=== PATIENT | male | born 1995 | race Caucasian/White ===

== ENCOUNTER 2019-11-21 08:43 | Day surgery (SDC) | payer OTHER ==
[~2019-11-21 08:43] MED LIST: BUPIVACAINE 0.5% PF 30 ML VIAL ONE; LIDOCAINE 1%-EPI 1:100000 20 ML MDV ONE
--- NOTE | 2019-11-21 09:01 | ANESTHESIA ---
Pre-Anesthesia VS, & Labs - Diagnosis Pilonidal cyst - Procedure Pilonidal cystectomy Vital Signs: Last Vital Signs Temp 36.9 C 11/21/19 09:05 Pulse 82 11/21/19 09:05 Resp 18 11/21/19 09:05 BP 160/137 H 11/21/19 09:05 Pulse Ox 97 11/21/19 09:05 - NPO >8 hours Home Medications and Allergies Home Medications: Ambulatory Orders Melatonin 5 - 10 mg PO QPM 11/17/19 Melatonin 5 - 10 mg PO QPM 11/17/19 Allergies/Adverse Reactions: Allergies Allergy/AdvReac Type Severity Reaction Status Date / Time No Known Drug Allergies Allergy Verified 11/17/19 11:53 Anes History & Medical History - Anesthetic History Anesthesia Complications: reports: No previous complications Family history of Anesthesia Complications: Denies Family history of Malignant Hyperthermia: Denies - Medical History Cardiovascular: reports: None Pulmonary: reports: None Gastrointestinal: reports: GERD Urinary: reports: None Musculoskeletal: reports: Chronic back pain Endocrine/Autoimmune: reports: HyPOthyroidism Skin: reports: None - Surgical History Eyes Ears Nose Throat (EENT): Tonsil/Adenoidectomy Exam General: Alert, Cooperative Dental: WNL Mouth Opening: Greater than 4 Fingerbreadths Neck Mobility: Normal Mallampati classification: I Thyromental Distance: greater than 6 cm Respiratory: Lungs clear, Normal breath sounds, No respiratory distress Cardiovascular: Regular rate Neurological: Normal speech Mental/Cognitive Status: Alert/Oriented X3, Normal for patient Cognitive Status: Within normal limits Plan Anesthesia Type: General Consent for Procedure(s) Verified and Reviewed: Yes Code Status: Attempt Resuscitation ASA classification: 2-Mild systemic disease Is this case an emergency?: No
[2019-11-21] MEDS ORDERED: LACTATED RINGERS 1,000 ML IV ONE ×2 (09:09→11:09)
[2019-11-21] MEDS ORDERED: ONDANSETRON 4 MG/2 ML VIAL IVP PRN (10:01)
[2019-11-21] MEDS ORDERED: HYDROmorphone 0.5 MG/0.5 ML SYRINGE IVP PRN (10:01)
[2019-11-21] MEDS ORDERED: oxyCODONE 5 MG TABLET PO PRN (10:01)
[2019-11-21] MEDS ORDERED: LIDOCAINE 1%-EPI 1:100000 30 ML MDV SUBQ ONE (10:18)
[2019-11-21] MEDS ORDERED: BUPIVACAINE 0.5% PF 30 ML VIAL INFIL ONE (10:18)
[2019-11-21] MEDS ORDERED: ceFAZolin 3 GM in SODIUM CHLORIDE 0.9% 100ML 100 ML IV ONE (11:00)
--- NOTE | 2019-11-21 11:04 | OPERATIVE REPORT ---
Operative Report - General Procedure Date: 11/21/19 Pre-Op Diagnosis: Draining Pilonial Sinus Tract Procedure Performed: Excision of pilonidal sinus tract Post Op Diagnosis: same - Procedure Note Primary Surgeon: Colleen Yan MD Anesthesia Provider: Alissa Wang CRNA Anesthesia Technique: General ET tube Pathology: none Estimated Blood Loss (mL): 20 Indications: 24yo M with persistently draining pilonidal sinus tract. No infection but not healing due to hypergranulation tissue. We discussed surgery options and he does not want a formal flap revision due his limited disease and the extensive nature of the procedure so he elects for a 'pit picking' procedure to remove the diseased tissue from the only active tract. All risks, benefits, and alternatives are discussed and pt wishes to proceed. Findings: draining sinus tract with hypergranulation tissue Complications: none - Other Other Information/Narrative: Patient is taken to the OR suite, placed in supine position, and induced to an acceptable level of general anesthesia before being placed prone. The area is prepped and draped in sterile fashion and a timeout performed with the team present. Attention is turned to the lesion. Local anesthesia is infiltrated over the site. The tract has hypergranulation tissue at the 1cm opening. The tract, especially this top area, is curretted to clear all the lining and hypergranulation tissue. The diseased tissue of the opening is excised with the bovie until healthy tissue is encountered. Hemostasis is ensured. The area is cleaned and dried and a clean dressing applied. Wound is packed with half-inch betadine soaked iodoform and dressed with gauze, an ABD, and mesh briefs. All counts were correct. Patient tolerated the procedure well, was awakened without issue, and taken to PACU hemodynamically stable.
[2019-11-21 12:54] VITALS: BP 151/80
== END 2019-11-21 08:44 | disposition home or self-care (01) ==
LOC: SDS 08:43
PROVIDERS: ATTEND Surgery
DX: L05.91 Pilonidal cyst without abscess (principal); E66.9 Obesity, unspecified; Z68.41 Body mass index [BMI] 40.0-44.9, adult
CPT/HCPCS: 11770; J7120